=== PATIENT | male | born 1990 | race Caucasian/White ===

== ENCOUNTER 2022-02-20 07:58 | Emergency (ER) | payer BC ==
[2022-02-20] MEDS ORDERED: Ibuprofen 600 MG Tab PO ONE (08:22)
== END 2022-02-20 08:53 | disposition home or self-care (01) ==
LOC: MW.ED 07:58
DX: T23.401A Corrosion of unspecified degree of right hand, unspecified site, initial encounter (principal); T23.402A Corrosion of unspecified degree of left hand, unspecified site, initial encounter
CPT/HCPCS: 99283; A9270